=== PATIENT | male | born 2000 | race Caucasian/White ===

== ENCOUNTER 2018-04-23 23:37 | Emergency (ER) | payer OTHER ==
[~2018-04-23] VITALS: Ht 175.3 cm; Wt 63.5 kg
[2018-04-24] MEDS ORDERED: VISTARIL 25 MG25 M1 PO (00:10)
[2018-04-24] MEDS ORDERED: PREDNISONE10 MG PO (00:12)
[2018-04-24] MEDS ORDERED: PEPCID20 MG PO (00:12)
[2018-04-24 00:52] LABS: HEMATOCRIT 43.5 % (42.0-52.0); HEMOGLOBIN 14.4 gm/dL (14.0-18.0); MCH 30.3 pg (26.0-34.0); MCHC 33.2 g/dL (28.0-37.0); MCV 91.1 fL (80.0-100.0); MPV 7.5 fl. (7.2-11.1); NUCLEATED RBCS 0 /100WBC; PLATELET COUNT* 275 thou/uL (150-400); RBC 4.77 mil/uL (4.50-6.00); RDW-CV 13.5 % (10.5-14.5); WBC 10.5 thou/uL (4.0-11.0)
[2018-04-24 00:53] LABS: CREATININE 0.9 mg/dL (0.6-1.3); POTASSIUM 3.7 mmol/L (3.5-5.1)
[2018-04-24 01:29] VITALS: BP 113/64
[2018-04-24 01:31] LABS: ABSOLUTE EOSINOPHILS 2.2 thou/uL (0.0-0.7); ABSOLUTE LYMPHOCYTES 2.4 thou/uL (0.8-5.3); ABSOLUTE MONOCYTES 0.8 thou/uL (0.0-1.2); ANISOCYTOSIS Occasional; PLATELET ESTIMATE ADEQUATE
[2018-04-24 01:32] LABS: TOXIC GRANULATION 1+
== END 2018-04-24 01:30 | disposition home or self-care (01) ==
LOC: M.ERS 23:37
PROVIDERS: Nurse Practitioner
DX: T78.49XA Other allergy, initial encounter (principal); X58.XXXA Exposure to other specified factors, initial encounter